=== PATIENT | male | born 1970 | race Caucasian/White ===

== ENCOUNTER 2022-12-28 15:40 | Inpatient (IN) | payer BC, MEDICARE ==
[2022-12-28 16:11] LABS: #Basophils 0.1 10x3/uL (0.0-0.2); #Eosinphils 0.4 10x3/uL (0.0-0.5); #Monocytes 0.9 10x3/uL (0.0-1.1); #Neutrophils 7.7 10x3/uL (1.5-8.4); %Basophils 0.6 % (0.0-2.0); %Eosinophils 3.1 % (0.0-6.0); %Lymphocytes 23.1 % (18.0-47.0); %Monocytes 7.9 % (0.0-10.0); %Neutrophils 64.6 % (40.0-75.0); Hematocrit 46.2 % (38.8-50.0); Hemoglobin 15.5 g/dL (13.5-17.5); Mean Corpuscular HGB CONC 33.5 g/dL (32.0-36.0); Mean Corpuscular Hemoglobin 29.6 pg (27.0-33.0); Mean Corpuscular Volume 88.3 fl (81.2-95.1); Mean Platelet Volume 9.7 fl (7.4-10.4); Platelet Count 375 10x3/uL (150-450); RBC Distribution Width 13.8 % (11.5-14.5); Red Blood Cell (RBC) Count 5.23 10x6/uL (4.32-5.72); White Blood Cell (WBC) Count 11.9 10x3/uL (3.5-10.5)
[2022-12-28] MEDS ORDERED: Ondansetron PF 4 MG/2 ML Vial ONE (16:13)
[2022-12-28 16:27] LABS: Acetaminophen Less than 10 mcg/mL (10.0-30.0); Alcohol Less than 10.0 mg/dL (Less than 10); Salicylate Less than 8.0 mg/dL (15.0-30.0)
[2022-12-28 16:30] LABS: ALT (SGPT) 36 U/L (8-55); AST (SGOT) 31 U/L (5-34); Albumin 4.1 g/dL (3.5-5.0); Alkaline Phosphatase 111 U/L (40-110); Anion Gap 18 mmol/L (10-20); BUN (Urea Nitrogen) 20 mg/dL (8.4-25.7); Bilirubin, Total 0.4 mg/dL (0.2-1.2); CK (CPK) 180 U/L (30-200); Calc. Creatinine Clearance 0 mL/min (70-130); Calcium 9.5 mg/dL (7.8-10.44); Carbon Dioxide 21 mmol/L (22-29); Chloride 106 mmol/L (98-107); Estimated GFR 98; Globulin 3.2 g/dL (2.4-3.5); Glucose 170 mg/dL (70-105); Potassium 4.2 mmol/L (3.5-5.1); Protein, Total 7.3 g/dL (6.0-8.3); Sodium 141 mmol/L (136-145)
[2022-12-28 18:33] LABS: Actual Bicarbonate (HCO3v) 26.4 mEq/L (22-28); Base Excess -0.5 mEq/L (-2 - +2); Calcium, Ionized (venous) 1.21 mmol/L (1.16-1.32); Chloride (VBG) 103 mmol/L (98-106); Hematocrit-VBG 48 % (42.0-52.0); Hemoglobin (Hb) 16.3 g/dL (13.1-17.2); Potassium (VBG) 4.12 mmol/L (3.70-5.30); Puncture Site Other Site; RapidComm Collect By CBN; Sodium 142 mmol/L (133-146); pH (venous) 7.325 (7.32-7.43)
[2022-12-28] MEDS ORDERED: Calcium Carbonate 500 MG ChewTAB PO PRN (19:06)
[2022-12-28] MEDS ORDERED: Acetaminophen 650 MG Suppository PR PRN (19:06)
[2022-12-28] MEDS ORDERED: Ondansetron PF 4 MG/2 ML Vial IVP PRN (19:06)
[2022-12-28] MEDS ORDERED: Acetaminophen 325 MG TAB PO PRN (19:06)
[2022-12-28] MEDS ORDERED: Senokot S 8.6-50 MG TAB PO PRN (19:06)
[2022-12-28] MEDS ORDERED: Ipratropium/Albuterol 3 ML NEB NEB PRN (19:12)
[2022-12-28] MEDS ORDERED: Famotidine/PF 20 mg/2ml Vial SLOW IVP SCH (21:30)
[2022-12-28] MEDS ORDERED: Lactated Ringer's 500 ML IV SCH (21:30)
[2022-12-28] MEDS ORDERED: Ziprasidone 20 MG VIAL IM SCH (21:45)
[2022-12-28] MEDS ORDERED: Sterile Water 10 ML ONE (21:47)
[2022-12-28] MEDS ORDERED: Ziprasidone 20 MG VIAL ONE (21:48)
[2022-12-28] MEDS: Lorazepam 2 MG/ML VIAL SLOW IVP PRN (21:55)
[2022-12-28 23:29] VITALS: BMI 50.6
[2022-12-29 03:06] LABS: Bilirubin Neg (Negative); Blood, Urine 150 (Negative); Clarity Clear (Clear); Glucose, Urine (Dipstick) Normal (Negative); Ketone, Urine Negative (Negative); Leukocyte Negative (Negative); Nitrite Negative (Negative); Protein, Urine (Dipstick) 30 mg/dl (Neg-Trace); Specific Gravity, Urine 1.025 (1.005-1.030); Urobilinogen Normal mg/dL (Less than 2)
[2022-12-29 03:18] LABS: Amphetamine Not Detected (NotDetected); Barbiturates Screen Not Detected (NotDetected); Benzodiazepine Screen Detected (NotDetected); Cocaine Metabolite Screen Detected (NotDetected); Methadone Not Detected (NotDetected); Methamphetamine Not Detected (NotDetected); Opiate Screen Not Detected (NotDetected); Oxycodone Screen Not Detected (NotDetected); Phencyclidine (PCP) Not Detected (NotDetected); THC/Cannabinoid Screen Not Detected (NotDetected); Tricyclic Screen Not Detected (NotDetected)
[2022-12-29 03:27] LABS: WBC/HPF 0-3 HPF (0-3)
[2022-12-29 03:28] LABS: Squamous Epithelial 0-3 HPF (0-3)
[2022-12-29 03:42] LABS: #Basophils 0.1 10x3/uL (0.0-0.2); #Eosinphils 0.3 10x3/uL (0.0-0.5); #Neutrophils 6.3 10x3/uL (1.5-8.4); %Basophils 0.7 % (0.0-2.0); %Eosinophils 2.8 % (0.0-6.0); %Lymphocytes 27.6 % (18.0-47.0); %Monocytes 9.1 % (0.0-10.0); %Neutrophils 59.1 % (40.0-75.0); Hemoglobin 14.9 g/dL (13.5-17.5); Mean Corpuscular HGB CONC 32.4 g/dL (32.0-36.0); Mean Corpuscular Hemoglobin 29.9 pg (27.0-33.0); Mean Corpuscular Volume 92.2 fl (81.2-95.1); Mean Platelet Volume 9.7 fl (7.4-10.4); Platelet Count 306 10x3/uL (150-450); RBC Distribution Width 13.9 % (11.5-14.5); Red Blood Cell (RBC) Count 4.99 10x6/uL (4.32-5.72); White Blood Cell (WBC) Count 10.7 10x3/uL (3.5-10.5)
[2022-12-29 03:55] LABS: Actual Bicarbonate (HCO3v) 23.8 mEq/L (22-28); Base Excess -3.6 mEq/L (-2 - +2); Calcium, Ionized (venous) 1.14 mmol/L (1.16-1.32); Chloride (VBG) 106 mmol/L (98-106); Hematocrit-VBG 45 % (42.0-52.0); Hemoglobin (Hb) 15.3 g/dL (13.1-17.2); Potassium (VBG) 3.85 mmol/L (3.70-5.30); Puncture Site Other Site; RapidComm Collect By CBN; Sodium 138 mmol/L (133-146); pH (venous) 7.282 (7.32-7.43)
[2022-12-29 04:00] LABS: Anion Gap 13 mmol/L (10-20); BUN (Urea Nitrogen) 15 mg/dL (8.4-25.7); CK (CPK) 131 U/L (30-200); Calc. Creatinine Clearance 231 mL/min (70-130); Calcium 8.8 mg/dL (7.8-10.44); Carbon Dioxide 21 mmol/L (22-29); Chloride 106 mmol/L (98-107); Estimated GFR 100; Glucose 114 mg/dL (70-105); Potassium 4.1 mmol/L (3.5-5.1); Sodium 136 mmol/L (136-145)
[2022-12-29] MEDS: Mometasone/Formoterol 200/5 60 PUFF INH SCH ×2 (07:38→23:54)
[2022-12-29] MEDS: Activated Charcoal/Sorbitol 25 GM/120 ML TUBE PO SCH ×2 (08:00→08:18)
[2022-12-29] MEDS: Famotidine/PF 20 mg/2ml Vial SLOW IVP SCH ×2 (08:18→20:09)
[2022-12-29 13:52] LABS: Hemoglobin A1c 7.5 % (4.0-6.0)
[2022-12-29] MEDS: Lorazepam 2 MG/ML VIAL SLOW IVP PRN (18:18)
[2022-12-29] MEDS ORDERED: Lorazepam 1 MG TAB PO PRN (18:25)
[2022-12-30] MEDS: Mometasone/Formoterol 200/5 60 PUFF INH SCH (06:50)
[2022-12-30 07:27] VITALS: BP 113/52; TEMP 98.1
[2022-12-30] MEDS ORDERED: Famotidine 20 MG TAB PO SCH (09:00)
== END 2022-12-30 11:00 | disposition short-term general hospital (02) | DRG 917 ==
LOC: CSHERS 15:40 → CSHIMCU 19:01
PROVIDERS: ADMIT Student in an Organized Health Care Education/Training Program; ATTEND Internal Medicine
PROC: 5A09457 Assistance with Respiratory Ventilation, 24-96 Consecutive Hours, Continuous Positive Airway Pressure (ICD-10-PCS; principal; 2022-12-28)
DX: T42.6X2A Poisoning by other antiepileptic and sedative-hypnotic drugs, intentional self-harm, initial encounter (principal); G92.8 Other toxic encephalopathy; J96.01 Acute respiratory failure with hypoxia; J96.22 Acute and chronic respiratory failure with hypercapnia; R45.851 Suicidal ideations; Z68.43 Body mass index [BMI] 50.0-59.9, adult; J44.9 Chronic obstructive pulmonary disease, unspecified; I10 Essential (primary) hypertension; E87.6 Hypokalemia; G47.33 Obstructive sleep apnea (adult) (pediatric); R73.9 Hyperglycemia, unspecified; E66.01 Morbid (severe) obesity due to excess calories; F31.9 Bipolar disorder, unspecified; F14.10 Cocaine abuse, uncomplicated; F17.210 Nicotine dependence, cigarettes, uncomplicated; R33.9 Retention of urine, unspecified; Z88.8 Allergy status to other drugs, medicaments and biological substances; Y92.9 Unspecified place or not applicable
CPT/HCPCS: 36415; 71045; 80048; 80053; 80306; 80307; 81001; 82550; 82805; 83036; 83735; 84443; 85025; 93005; 94660; 94760; 94762; 96374; J1650; J2060; J2405; J3486; J7120; S0028

== ENCOUNTER 2023-01-20 21:33 | Emergency (ER) | payer BC, MEDICARE ==
[2023-01-20 23:16] LABS: Troponin I Less than 0.010 ng/mL (< 0.028)
== END 2023-01-21 00:54 | disposition home or self-care (01) ==
LOC: CSHERS 21:33
DX: I20.1 Angina pectoris with documented spasm (principal); I10 Essential (primary) hypertension; F17.210 Nicotine dependence, cigarettes, uncomplicated
CPT/HCPCS: 71045; 84484; 93005